=== PATIENT | male | born 1980 | race Caucasian/White ===

== ENCOUNTER 2021-02-21 07:23 | Emergency (ER) | payer BC, OTHER ==
[~2021-02-21 07:23] MED LIST: DEXILANT60 MG PO; MIRALAX17 GM PO; XYZAL5 MG PO; [UNRECOGNIZED DRUG - OTHER] PO
[2021-02-21 11:00] LABS: HEMOGLOBIN 14.7 gm/dl (14.0-17.5); RED BLOOD COUNT 4.56 M/UL (4.20-5.50); WHITE BLOOD COUNT 6.7 K/UL (4.5-11.0)
[2021-02-21 11:36] LABS: BUN/CREATININE RATIO 17 (0-10)
[2021-02-21] MEDS ORDERED: IBUPROFEN600 MG PO (15:36)
[2021-02-21] MEDS ORDERED: CYCLOBENZAPRINE10 MG PO (15:36)
== END 2021-02-21 16:02 | disposition home or self-care (01) ==
LOC: ER1 07:23
PROVIDERS: Emergency Medicine
DX: M54.6 Pain in thoracic spine (principal); M50.30 Other cervical disc degeneration, unspecified cervical region; I10 Essential (primary) hypertension; Z90.49 Acquired absence of other specified parts of digestive tract
CPT/HCPCS: 71046; 72125; 80053; 82550; 82553; 83874; 84484; 85025; 85379; 96374; 96375; 99284; J2270; J2405; Q9967

== ENCOUNTER 2022-06-27 16:52 | Emergency (ER) | payer BC ==
[~2022-06-27 16:52] MED LIST changes: +CYCLOBENZAPRINE10 MG PO; +IBUPROFEN600 MG PO
[2022-06-27 18:48] LABS: HEMOGLOBIN 14.4 gm/dl (14.0-17.5); RED BLOOD COUNT 4.53 M/UL (4.20-5.50); WHITE BLOOD COUNT 9.2 K/UL (4.5-11.0)
[2022-06-27 19:12] LABS: BUN/CREATININE RATIO 21 (0-10)
== END 2022-06-27 22:05 | disposition home or self-care (01) ==
LOC: ER1 16:52
PROVIDERS: Emergency Medicine
DX: R10.9 Unspecified abdominal pain (principal); R10.814 Left lower quadrant abdominal tenderness; I10 Essential (primary) hypertension; K21.9 Gastro-esophageal reflux disease without esophagitis
CPT/HCPCS: 80053; 81001; 83690; 85025; 96374; 99284; J2405; Q9967